=== PATIENT | male | born 1970 | race Caucasian/White ===

== ENCOUNTER 2017-08-20 09:01 | Day surgery (SDC) | payer OTHER ==
[~2017-08-20] VITALS: Ht 177.8 cm; Wt 81.0 kg
[~2017-08-20 09:01] MED LIST: NASONEX17 GM BOTH NARES
[2017-08-20 09:36] VITALS: BP 134/87
[2017-08-20] MEDS ORDERED: NORCO 5/3251 TABLET PO (13:38)
[2017-08-20 14:40] VITALS: BP 153/83
[2017-08-20 15:40] VITALS: BP 161/93
[2017-08-20 16:39] VITALS: BP 158/90
[2017-08-20 16:55] VITALS: BP 174/94
== END 2017-08-20 17:04 | disposition home or self-care (01) ==
LOC: SDC
PROC: 0WUF4JZ Supplement Abdominal Wall with Synthetic Substitute, Percutaneous Endoscopic Approach (ICD-10-PCS; principal; 2017-08-20)
DX: K43.6 Other and unspecified ventral hernia with obstruction, without gangrene (principal); Z87.891 Personal history of nicotine dependence
CPT/HCPCS: C1781; J0690; J1170; J2405; J2710; J3010; J7120; J7643; Q0175; S0020